=== PATIENT | male | born 1995 | race Caucasian/White ===

== ENCOUNTER 2017-05-20 21:38 | Emergency (ER) | payer OTHER ==
[~2017-05-20] VITALS: Ht 182.9 cm; Wt 95.1 kg
[~2017-05-20 21:38] MED LIST: AMBIEN5 MG PO; ARIPIPRAZOLE10 MG PO; CELEXA20 MG PO; MOTRIN800 MG PO; NOHOMEMEDS; TRAZODONE HCL100 MG PO
[2017-05-20 22:22] LABS: ADD MIUA? YES; BILIRUBIN NEGATIVE; BLOOD SMALL; COLOR STRAW ((YELLOW)); GLUCOSE (STRIP) NEGATIVE; KETONES NEGATIVE; LEUKOCYTES NEGATIVE; NITRITE NEGATIVE; PROTEIN (STRIP) NEGATIVE; SPECIFIC GRAVITY 1.003 (1.000-1.030); UROBILINOGEN 0.2 MG/DL (0.2-1.0)
[2017-05-20 22:26] LABS: BACTERIA RARE /HPF; EPITHELIAL CELLS RARE /HPF; MUCUS NONE SEEN /LPF; RED BLOOD CELLS 0-5 /HPF (0-5); WHITE BLOOD CELLS 0-5 /HPF (0-5)
[2017-05-20 22:30] LABS: AMPHETAMINE NEGATIVE (500 ng/mL); BARBITURATES NEGATIVE (200 ng/mL); BENZODIAZEPINES NEGATIVE (150 ng/mL); COCAINE NEGATIVE (150 ng/mL); INTERNAL CONTROLS VALID? YES; METHADONE NEGATIVE (200 ng/mL); METHAMPHETAMINE NEGATIVE (500 ng/mL); OPIATES (MORPHINE) NEGATIVE (100 ng/mL); OXYCODONE NEGATIVE (100 ng/mL); PHENCYCLIDINE NEGATIVE (25 ng/mL); PROPOXYPHENE NEGATIVE (300 ng/mL); THC CANNABINOIDS PRESUMPTIVE POSITIVE (50 ng/mL); TRICYCLIC ANTIDEPRESSANTS NEGATIVE (300 ng/mL)
[2017-05-20 22:31] LABS: ADD MEDTOX COMMENT Y
[2017-05-20 23:00] VITALS: BP 163/95
[2017-05-20 23:19] LABS: HEMATOCRIT 43.1 % (38.0-50.0); MCHC 35.3 G/DL (30.0-36.0); MCV 90.7 FL (86-99); MEAN PLAT.VOLUME 12.4 uM^3 (9.0-12.4); PLATELET COUNT 143 K/uL (156-360); RBC DIS.WIDTH-CV 11.9 % (11.8-14.6); RBC DIS.WIDTH-SD 39.7 % (39-53); RED BLOOD COUNT 4.75 M/uL (4.00-5.50); WHITE BLOOD COUNT 11.2 K/uL (4.1-10.2)
[2017-05-20 23:33] LABS: CHLORIDE 108 mEq/L (99-109); POTASSIUM 3.8 mEq/L (3.7-5.4); SODIUM 142 mEq/L (136-147)
[2017-05-20 23:36] LABS: GLUCOSE 113 mg/dL (70-99)
[2017-05-20 23:37] LABS: ANION GAP 9 MEQ/L (2-14); TOTAL BILIRUBIN 0.8 mg/dL (0.0-1.0)
[2017-05-20 23:39] LABS: ALKALINE PHOSPHATASE 66 IU/L (3-129); GFR ESTIMATE (CALCULATED) > 59 mL/min/; SERUM ETHYL ALCOHOL < 10 mg/dL
[2017-05-20 23:40] LABS: UREA NITROGEN (BUN) 7 mg/dL (9-23)
== END 2017-05-20 23:05 | disposition home or self-care (01) ==
LOC: EME 21:38
PROVIDERS: Emergency Medicine
DX: F32.9 Major depressive disorder, single episode, unspecified (principal); F12.10 Cannabis abuse, uncomplicated; F43.20 Adjustment disorder, unspecified; F17.200 Nicotine dependence, unspecified, uncomplicated
CPT/HCPCS: 80053; 81003; 84999; 85027; 90839; 99281; 99285; G0480

== ENCOUNTER 2017-05-22 15:19 | Emergency (ER) | payer SELFPAY ==
[~2017-05-22] VITALS: Ht 182.9 cm; Wt 99.6 kg
[2017-05-22 16:22] VITALS: BP 158/81
== END 2017-05-22 16:22 | disposition home or self-care (01) ==
LOC: EME 15:19
DX: F41.9 Anxiety disorder, unspecified (principal); F17.200 Nicotine dependence, unspecified, uncomplicated
CPT/HCPCS: 99281; 99283

== ENCOUNTER 2017-05-23 11:36 | Inpatient (IN) | payer OTHER ==
[~2017-05-23] VITALS: Ht 188 cm; Wt 90.7 kg
[2017-05-23 12:32] LABS: HEMATOCRIT 46.7 % (38.0-50.0); MCHC 35.5 G/DL (30.0-36.0); MCV 90.2 FL (86-99); MEAN PLAT.VOLUME 12.6 uM^3 (9.0-12.4); PLATELET COUNT 156 K/uL (156-360); RBC DIS.WIDTH-CV 11.9 % (11.8-14.6); RBC DIS.WIDTH-SD 39.2 % (39-53); RED BLOOD COUNT 5.18 M/uL (4.00-5.50); WHITE BLOOD COUNT 6.8 K/uL (4.1-10.2)
[2017-05-23 12:44] LABS: CHLORIDE 107 mEq/L (99-109); POTASSIUM 3.9 mEq/L (3.7-5.4); SODIUM 143 mEq/L (136-147)
[2017-05-23 12:46] LABS: GLUCOSE 99 mg/dL (70-99)
[2017-05-23 12:47] LABS: ANION GAP 12 MEQ/L (2-14)
[2017-05-23 12:49] LABS: SERUM ETHYL ALCOHOL < 10 mg/dL
[2017-05-23 12:50] LABS: GFR ESTIMATE (CALCULATED) > 59 mL/min/
[2017-05-23 12:51] LABS: UREA NITROGEN (BUN) 11 mg/dL (9-23)
[2017-05-23 13:14] LABS: AMPHETAMINE NEGATIVE (500 ng/mL); BARBITURATES NEGATIVE (200 ng/mL); BENZODIAZEPINES NEGATIVE (150 ng/mL); COCAINE NEGATIVE (150 ng/mL); INTERNAL CONTROLS VALID? YES; METHADONE NEGATIVE (200 ng/mL); METHAMPHETAMINE NEGATIVE (500 ng/mL); OPIATES (MORPHINE) NEGATIVE (100 ng/mL); OXYCODONE NEGATIVE (100 ng/mL); PHENCYCLIDINE NEGATIVE (25 ng/mL); PROPOXYPHENE NEGATIVE (300 ng/mL); THC CANNABINOIDS PRESUMPTIVE POSITIVE (50 ng/mL); TRICYCLIC ANTIDEPRESSANTS NEGATIVE (300 ng/mL)
[2017-05-23 13:15] LABS: ADD MEDTOX COMMENT Y
[2017-05-23 14:22] VITALS: BP 138/93
[2017-05-23 15:17] VITALS: BP 138/93
[2017-05-24 07:31] VITALS: BP 157/77
[2017-05-24 15:49] VITALS: BP 133/77
[2017-05-25 07:31] VITALS: BP 166/75
[2017-05-25 14:16] VITALS: BP 134/73
[2017-05-25 15:39] VITALS: BP 142/67
[2017-05-25 21:38] VITALS: BP 123/68
[2017-05-26 07:20] VITALS: BP 141/82
[2017-05-26 15:43] VITALS: BP 144/74
[2017-05-27 07:48] VITALS: BP 140/66
[2017-05-27] MEDS ORDERED: ARIPIPRAZOLE15 MG PO (12:38)
== END 2017-05-27 13:38 | disposition home or self-care (01) | DRG 885 ==
LOC: EME 11:36 → 1WEST 13:12 → EDOF 13:12 → ENRESERV 14:16 → 1WEST 14:18
PROVIDERS: Emergency Medicine
DX: F20.0 Paranoid schizophrenia (principal); F12.10 Cannabis abuse, uncomplicated; F19.10 Other psychoactive substance abuse, uncomplicated; G47.00 Insomnia, unspecified; R41.83 Borderline intellectual functioning; F17.210 Nicotine dependence, cigarettes, uncomplicated
CPT/HCPCS: 80048; 84999; 85027; 90839; 97150 GO; 97166 GO; 99281; 99285; G0480; Q0177